=== PATIENT | female | born 1990 | race Caucasian/White ===

== ENCOUNTER 2023-12-03 15:12 | Emergency (ER) | payer BC, SELFPAY ==
--- NOTE | ~2023-12-03 | XR_ITS ---
XR chest 2V DATE: 12/03/2023 16:06 INDICATION: Cough and shortness of breath for one week TECHNIQUE: 2 views COMPARISON: None FINDINGS: Normal heart size. No hilar or mediastinal enlargement. No pulmonary infiltrate or consolid ation, pleural effusion or pulmonary vascular congestion or pneumothorax is detected. IMPRESSION: No active cardiopulmonary disease Reviewed, dictated and finalized at location A.
[2023-12-03 15:33] VITALS: BP 131/98; PULSE 107; RESP 18; TEMP 36.6; O2SAT 99
--- NOTE | 2023-12-03 15:53 | ED.GENADULT ---
HPI - General Adult General Chief complaint: Upper Respiratory Infection Stated complaint: sob and thich coughs Time Seen by Provider: 12/03/23 15:53 Source: patient Mode of arrival: ambulatory Limitations: no limitations History of Present Illness HPI narrative: 32-year-old female patient presents to the [facility] with complaints of a cough for the past week. Patient states she a lot of congestion before the cough started that has since somewhat resolved and now she feels like she just cannot with coughing and has been having shortness of breath. Denies any fevers but states she has had some chills and sweats recently. Denies any ear pain, sore throat, abdominal pain, nausea, vomiting or diarrhea. Related Data Allergies Allergy/AdvReac Type Severity Reaction Status Date / Time No Known Allergies Allergy Verified 12/03/23 15:40 Review of Systems Review of Systems: CONSTITUTIONAL: Denies fever, Positive body aches and chills, positive sweats. EYES: Denies visual changes, redness, or discharge. ENT: positive rhinorrhea, congestion, denies sore throat, or otalgia. CARDIOVASCULAR: Denies chest pain, palpitations, or edema. RESPIRATORY: positive cough with dyspnea. GASTROINTESTINAL: Denies abdominal pain, nausea, vomiting, or diarrhea. GENITOURINARY: Denies dysuria or hematuria. SKIN: Denies rash or itching. MUSCULOSKELETAL: Denies back pain, joint pain, or myalgia. NEUROLOGIC: Denies headache, numbness, or weakness. PSYCHIATRIC: Denies anxiety or depression. PMFSH Past Medical History Medical History (Updated 12/03/23 @ 16:32 by STEPHANIE Hernandez) Bronchitis Pneumonia Social History Social History (Updated 12/03/23 @ 16:00 by STEPHANIE Hernandez) Smoking packs per day: 1 Smoking cigarettes per day: 20.0 Comments At the time of my signature I agree with nursing past medical history, surgical, social, and family history. There is no relevant family history pertinent to the presenting complaint. Exam Narrative: GENERAL: Well-appearing, well-nourished, and in no acute distress. HEAD: Normocephalic, atraumatic. EYES: PERRLA and EOMI. ENT: Nares with erythema edema noted bilaterally, yellow rhinorrhea, no epistaxis. Mucous membranes moist. posterior pharynx with no erythema, tonsillar enlargement, exudates or lesions. . There is some injection noted to bilateral TMs. NECK: Supple. No lymphadenopathy CHEST: Patient has inspiratory and expiratory wheezing noted to bilateral upper lower lobes. patient has obvious cough and is unable to take deep breath without coughing HEART: Regular rate and rhythm. No murmur heard. Normal peripheral pulses. ABDOMEN: Soft, nontender, nondistended, normal active bowel sounds. EXTREMITIES: Normal range of motion. No edema. SKIN: Warm, dry, no rash. NEURO: No focal deficits. Alert and oriented x3. Course Course Level of Care: Express Care Visit Reevaluation(s) Reevaluation #1: re-evaluate patient after breathing treatment has been completed. Patient states she is feeling a little bit better and has some relief after the breathing treatment. Patient's lung sounds continued to have inspiratory and expiratory wheezing but do sound less tight than prior to treatments. Discussed with her that her x-ray is negative for any acute pneumonia we will discharge her home with oral steroids, inhaler and Tessalon Perles for her cough and she can follow up with her primary doctor as needed. Patient verbalized understanding denies any other questions or concerns. Date: 12/03/23 Time: 16:33 Vital Signs Vital signs: Vital Signs Temperature 36.6 C 12/03/23 15:33 Pulse Rate 107 H 12/03/23 15:33 Respiratory Rate 18 12/03/23 15:33 Blood Pressure 131/98 H 12/03/23 15:33 Pulse Oximetry 99 12/03/23 15:33 Oxygen Delivery Room Air 12/03/23 15:33 Temperature 36.6 C 12/03/23 15:33 Pulse Rate 105 H 12/03/23 16:09 Respiratory Rate 20 12/03/23 16:09
[2023-12-03 16:09] VITALS: PULSE 105; RESP 20; O2SAT 99
[2023-12-03] MEDS: IPRATROPIUM 0.5 MG/ALBUTEROL SULFATE 2.5 MG AMPUL.NEB 3 ML INHALATION (16:09)
[2023-12-03 16:36] VITALS: PULSE 108; RESP 20; O2SAT 99
== END 2023-12-03 16:36 | disposition home or self-care (01) ==
PROVIDERS: Emergency Provider Nurse Practitioner Family; Referring Provider Family Medicine
DX: J40 Bronchitis, not specified as acute or chronic (principal); F17.210 Nicotine dependence, cigarettes, uncomplicated
CPT/HCPCS: 71046; 99213; G0463